=== PATIENT | male | born 1960 | race Caucasian/White ===

== ENCOUNTER 2025-09-17 15:01 | Emergency (ER) | payer BC | END 2025-09-17 17:05 | disposition home or self-care (01) | LOC: LB.ED 15:01 | DX: S61.012A Laceration without foreign body of left thumb without damage to nail, initial encounter (principal); I10 Essential (primary) hypertension; F17.200 Nicotine dependence, unspecified, uncomplicated; W26.0XXA Contact with knife, initial encounter; Y93.89 Activity, other specified | CPT/HCPCS: 12001; 99282; 99283 ==